=== PATIENT | male | born 1990 | race Caucasian/White ===

== ENCOUNTER 2017-11-03 12:09 | Emergency (ER) | payer BC ==
[~2017-11-03] VITALS: Ht 182.9 cm; Wt 83.9 kg
[2017-11-03] MEDS ORDERED: QUET100T PO (12:15)
[2017-11-03] MEDS ORDERED: CLINDAMYCIN HCL 150 MG CAPSULE PO ONE (12:30)
[2017-11-03] MEDS ORDERED: HYDROCODONE/APAP 5-325MG TABLET PO ONE (12:30)
[2017-11-03] MEDS ORDERED: HYDROCODONE/APAP 5-325MG TABLET ONE (12:32)
[2017-11-03] MEDS ORDERED: CLINDAMYCIN HCL 150 MG CAPSULE ONE (12:32)
--- NOTE | 2017-11-03 12:42 | NUR ---
Patient discharged to home in stable conditon. Written and verbal after care instructions given. Patient verbalizes understanding of instructions.
== END 2017-11-03 12:42 | disposition home or self-care (01) ==
LOC: ER 12:09
DX: K04.7 Periapical abscess without sinus (principal); A69.1 Other Vincent's infections
CPT/HCPCS: A4663